=== PATIENT | female | born 1975 | race Caucasian/White ===

== ENCOUNTER 2016-12-23 10:47 | Day surgery (SDC) | payer SELFPAY ==
[2016-12-21 13:03] VITALS: BMI 19.5
[2016-12-23] MEDS ORDERED: LIDOCAINE HCL 1%, 10 MG/ML (20ML VIAL) ONE (11:24)
[2016-12-23] MEDS ORDERED: EPINEPHrine/PF 1 MG/1 ML (1:1,000) AMPULE ONE (11:24)
[2016-12-23] MEDS ORDERED: BACITRACIN 30 GM TUBE TOPICAL OINTMENT ONE (11:24)
[2016-12-23] MEDS ORDERED: LIDOCAINE 1%-EPI 1:100,000 30 ML MDV IJ ONE (11:24)
[2016-12-23] MEDS ORDERED: ceFAZolin SODIUM 1 GM VIAL ONE (11:49)
[2016-12-23] MEDS ORDERED: PROPOFOL 20 ML ONE ×7 (11:52)
[2016-12-23] MEDS ORDERED: ONDANSETRON 4 MG/2 ML VIAL ONE ×2 (11:53→16:29)
[2016-12-23] MEDS ORDERED: DEXAMETHASONE SOD PHOSPHATE 4 MG/1 ML VIAL ONE (11:53)
[2016-12-23] MEDS ORDERED: ACETAMINOPHEN INJECTION 100 ML IVPB ONE (11:57)
[2016-12-23] MEDS ORDERED: DESFLURANE GAS 240 ML BOTTLE IH ONE ×2 (11:57→12:27)
[2016-12-23] MEDS ORDERED: SCOPOLAMINE HYDROBROMIDE 1 PATCH PATCH.TD72 ONE (12:02)
[2016-12-23] MEDS ORDERED: MIDAZOLAM HCL 2 MG/2 ML SINGLE DOSE VIAL ONE (12:24)
[2016-12-23] MEDS ORDERED: BUPIVACAINE HCL/PF 2.5 MG/ML - 30 ML VIAL IJ ONE (12:39)
[2016-12-23] MEDS ORDERED: MINERAL OIL/PETROLATUM,WHITE 3.5 GM TUBE ONE (12:57)
[2016-12-23] MEDS ORDERED: PROMETHAZINE HCL 25 MG/1 ML VIAL IVPUSH PRN (15:58)
[2016-12-23] MEDS ORDERED: ONDANSETRON 4 MG/2 ML VIAL IVPUSH PRN (15:58)
[2016-12-23] MEDS ORDERED: oxyCODONE HCL 5 MG TABLET PO PRN (15:58)
[2016-12-23] MEDS ORDERED: LACTATED RINGERS SOLUTION 1,000 ML IV SCH (16:00)
[2016-12-23 17:38] VITALS: TEMP 97.8
[2016-12-23 18:33] VITALS: BP 104/63; PULSE 75
== END 2016-12-23 18:15 | disposition home or self-care (01) ==
LOC: FASU 10:47
PROVIDERS: ATTEND Surgery
CPT/HCPCS: 84703; 94760

== ENCOUNTER 2020-12-08 06:33 | Day surgery (SDC) | payer SELFPAY ==
[2020-12-07 10:31] VITALS: BMI 17.7
[2020-12-08] MEDS ORDERED: LIDOCAINE HCL 1%, 10 MG/ML (20ML VIAL) ONE (07:21)
[2020-12-08] MEDS ORDERED: ceFAZolin SODIUM 1 GM VIAL ONE ×3 (07:21→10:20)
[2020-12-08] MEDS ORDERED: GENTAMICIN SO4 80 MG/2 ML VIAL ONE ×2 (07:21→10:20)
[2020-12-08] MEDS ORDERED: BUPIVACAINE HCL/PF 2.5 MG/ML - 30 ML VIAL IJ ONE (07:22)
[2020-12-08] MEDS ORDERED: GUM MASTIC/STORAX/MSAL/ALCOHOL 1 DRP DROPSBTL MC ONE (07:22)
[2020-12-08] MEDS ORDERED: SCOPOLAMINE HYDROBROMIDE 1 PATCH PATCH.TD72 ONE (07:34)
[2020-12-08] MEDS ORDERED: MIDAZOLAM HCL 2 MG/2 ML SINGLE DOSE VIAL ONE (07:36)
[2020-12-08] MEDS ORDERED: HYDROmorphone HCL/PF 1 MG/ML VIAL ONE (07:43)
[2020-12-08] MEDS ORDERED: PROPOFOL 20 ML ONE ×5 (07:44→10:36)
[2020-12-08] MEDS ORDERED: SUCCINYLCHOLINE CHLORIDE 200 MG/10 ML SYRINGE ONE (07:44)
[2020-12-08] MEDS ORDERED: DEXAMETHASONE SOD PHOSPHATE 4 MG/1 ML VIAL ONE ×2 (07:44→11:29)
[2020-12-08] MEDS ORDERED: ONDANSETRON 4 MG/2 ML VIAL ONE ×2 (07:44→11:29)
[2020-12-08] MEDS ORDERED: PHENYLEPHRINE HCL 10 MG/1 ML SINGLE DOSE VIAL ONE ×2 (09:11)
[2020-12-08] MEDS ORDERED: LIDOCAINE 1%/EPI 1:100000 (20 ML MULTI DOSE VIAL) ONE (09:14)
[2020-12-08] MEDS ORDERED: ePHEDrine SULFATE 50 MG/1 ML AMPULE ONE (09:46)
[2020-12-08] MEDS ORDERED: BUPIVACAINE HCL/PF 0.25% (2.5MG/ML) 10 ML VIAL ONE ×2 (11:34)
[2020-12-08] MEDS ORDERED: BUPIVACAINE HCL/PF 0.25% (2.5MG/ML) 10 ML VIAL IJ ONE ×2 (11:39)
[2020-12-08] MEDS ORDERED: NEOSTIGMINE METHYLSULFATE 0.5 MG/1 ML - 10 ML MDV ONE (11:48)
[2020-12-08] MEDS ORDERED: GLYCOPYRROLATE 0.2 MG/1 ML VIAL ONE (11:48)
[2020-12-08] MEDS ORDERED: ONDANSETRON 4 MG/2 ML VIAL IVPUSH PRN (12:23)
[2020-12-08] MEDS ORDERED: oxyCODONE HCL 5 MG TABLET PO PRN (12:23)
[2020-12-08] MEDS ORDERED: ACETAMINOPHEN 325 MG TABLET (FP) PO ONE (12:24)
[2020-12-08] MEDS ORDERED: LACTATED RINGERS SOLUTION 1,000 ML IV SCH (12:30)
[2020-12-08 13:44] VITALS: PULSE 84
[2020-12-08 13:51] VITALS: BP 102/65; TEMP 98
== END 2020-12-08 14:35 | disposition home or self-care (01) ==
LOC: FASU 06:33
PROVIDERS: ATTEND Surgery
PROC: 0H0V0JZ Alteration of Bilateral Breast with Synthetic Substitute, Open Approach (ICD-10-PCS; principal; 2020-12-08 09:23)
DX: Z41.1 Encounter for cosmetic surgery (principal)
CPT/HCPCS: 81025; 94760